=== PATIENT | female | born 1945 ===

== ENCOUNTER 2018-01-17 05:45 | Day surgery (SDC) | payer OTHER ==
[~2018-01-17 05:45] MED LIST: MEDROL4 MG PO; METOTEXATE PO; XARELTO20 MG PO; ZOCOR5 MG PO
[2018-01-17] MEDS ORDERED: PERCOCET 5-3251 EACH PO (09:16)
[2018-01-17] MEDS ORDERED: COLACE100 MG PO (09:16)
== END 2018-01-17 13:30 | disposition home or self-care (01) ==
LOC: CIR.AMB 05:45
DX: D12.8 Benign neoplasm of rectum (principal)

== ENCOUNTER 2018-09-08 06:28 | Day surgery (SDC) | payer OTHER ==
[~2018-09-08 06:28] MED LIST changes: +COLACE100 MG PO; +PERCOCET 5-3251 EACH PO
== END 2018-09-08 11:34 | disposition home or self-care (01) ==
LOC: AMB-ENDOS 06:28
DX: D12.3 Benign neoplasm of transverse colon (principal)